=== PATIENT | female | born 1980 | race American Indian/Alaskan Native ===

== ENCOUNTER 2018-11-04 20:13 | Emergency (ER) | payer MEDICAID ==
[2018-11-04] MEDS ORDERED: ASPIRIN PO ONE (20:23)
--- NOTE | 2018-11-04 20:25 | Event Note ---
ED Screening Note Date of service: 11/04/18 Time: 20:22 ED Screening Note: This is a 38 y.o. F. that presents to the ER with chest pain radiating to LUE. PMH of anxiety, TIA 2013 Patient took 2 briana ASA prior to arrival. This initial assessment/diagnostic orders/clinical plan/treatment(s) is/are subject to change based on patients health status, clinical progression and re- assessment by fellow clinical providers in the ED. Further treatment and workup at subsequent clinical providers discretion. Patient/guardian urged not to elope from the ED as their condition may be serious if not clinically assessed and managed. Initial orders include: Labs, ekg, and cxr
[2018-11-04 20:45] LABS: Basophils # (Auto) 0.1 K/mm3 (0.0-0.1); Basophils % (Auto) 0.6 % (0.0-1.8); Eosinophils # (Auto) 0.3 K/mm3 (0.0-0.4); Eosinophils % (Auto) 2.6 % (0.0-4.3); Hematocrit 37.1 % (30.3-42.9); Hemoglobin 12.6 gm/dl (10.1-14.3); Lymphocytes % (Auto) 37.9 % (13.4-35.0); Mean Corpuscular HGB Conc 34 % (30-34); Mean Corpuscular Volume 88 fl (79-97); Monocytes # (Auto) 0.7 K/mm3 (0.0-0.8); Monocytes % (Auto) 6.3 % (0.0-7.3); Platelet Count 283 K/mm3 (140-440); Red Blood Count 4.21 M/mm3 (3.65-5.03); Red Cell Distribution Width 13.4 % (13.2-15.2)
--- NOTE | 2018-11-04 20:54 | Emergency Department Report ---
ED Chest Pain HPI - General Chief Complaint: Chest Pain Stated Complaint: CHEST PAIN/NECK/ARM PAIN Time Seen by Provider: 11/04/18 20:21 Source: patient Mode of arrival: Ambulatory Limitations: No Limitations - History of Present Illness Initial Comments: Patient is 38 years old female with history of hypertension and diabetes controlled by diet. Patient presented to the ER complaining of generalized chest pain, sharp in nature with no radiation. Patient stated that pain started all of a sudden while she was driving. Patient also stated that she has some shortness of breath. Patient stated that she had history of panic attack. MD Complaint: chest pain -: Sudden, This afternoon Pain Location: substernal, left chest, right chest Severity: moderate Severity scale (0 -10): 6 Quality: sharp - Related Data Allergies Allergy/AdvReac Type Severity Reaction Status Date / Time No Known Allergies Allergy Unverified 11/04/18 20:14 Heart Score - HEART Score History: Moderately suspicious EKG: Non-specific Age: < 45 Risk factors: 1-2 risk factors Troponin: < normal limit HEART Score: 3 - Critical Actions Critical Actions: 0-3 pts:0.9-1.7%risk of adverse cardiac event.Candidate for discharge ED Review of Systems ROS: Stated complaint: CHEST PAIN/NECK/ARM PAIN Other details as noted in HPI Comment: All other systems reviewed and negative Constitutional: denies: chills, fever Respiratory: shortness of breath. denies: cough, orthopnea, SOB with exertion, SOB at rest Cardiovascular: chest pain. denies: palpitations Gastrointestinal: denies: abdominal pain, nausea Neurological: denies: headache, weakness, numbness, paresthesias, confusion, abnormal gait ED Past Medical Hx - Past Medical History Previous Medical History?: Yes Hx Hypertension: Yes Hx Headaches / Migraines: Yes Hx Psychiatric Treatment: Yes (Panic Attack) Additional medical history: TIA - Surgical History Past Surgical History?: Yes Additional Surgical History: Tubal Ligation - Social History Smoking Status: Never Smoker Substance Use Type: None ED Physical Exam - General Limitations: No Limitations General appearance: alert, in no apparent distress, anxious - Head Head exam: Present: atraumatic, normocephalic, normal inspection - Eye Eye exam: Present: normal appearance, PERRL - ENT ENT exam: Present: normal exam, normal orophraynx, mucous membranes moist - Neck Neck exam: Present: normal inspection, full ROM. Absent: tenderness, meningismus, lymphadenopathy, thyromegaly - Respiratory Respiratory exam: Present: normal lung sounds bilaterally - Cardiovascular Cardiovascular Exam: Present: regular rate, normal rhythm, normal heart sounds - GI/Abdominal GI/Abdominal exam: Present: soft, normal bowel sounds. Absent: distended, tenderness, guarding, rebound, rigid, organomegaly, mass, bruit, pulsatile mass, hernia - Extremities Exam Extremities exam: Present: normal inspection, full ROM, normal capillary refill. Absent: tenderness, pedal edema, calf tenderness - Back Exam Back exam: Present: normal inspection, full ROM. Absent: CVA tenderness (R), CVA tenderness (L), muscle spasm, paraspinal tenderness, vertebral tenderness - Neurological Exam Neurological exam: Present: alert, oriented X3, CN II-XII intact, normal gait, reflexes normal - Psychiatric Psychiatric exam: Present: normal mood - Skin Skin exam: Present: warm, intact, normal color ED Course Vital Signs 11/04/18 11/04/18 11/04/18 20:24 21:01 21:12 Temperature 97.3 F L Pulse Rate 63 62 Respiratory 18 16 16 Rate Blood Pressure 121/77 Blood Pressure 128/77 [Left] O2 Sat by Pulse 98 100 100 Oximetry 11/04/18 22:55 Temperature Pulse Rate 72 Respiratory 17 Rate Blood Pressure Blood Pressure 132/76 [Left] O2 Sat by Pulse 100 Oximetry ED Medical Decision Making - Lab Data Result diagrams: 11/04/18 20:27 11/04/18 20:27 - EKG Data -: EKG Interpreted by Co EKG shows normal: sinus rhythm Rate: normal - EKG Data Interpretation: no acute changes - Radiology Data Radiology results: report reviewed CTA chest is negative for acute finding. - Medical Decision Making Patient is 38 years old female with history of hypertension and diabetes controlled by diet. Patient presented to the ER complaining of generalized chest pain, sharp in nature with no radiation. Patient stated that pain started all of a sudden while she was driving. Patient also stated that she has some shortness of breath. Patient stated that she had history of panic attack. Patient stated that she is feeling much better. Symptoms completely resolved. Labs reviewed and is unremarkable except for slightly increased d-dimer irritation had a CTA chest and he came back negative for PE. Patient advised to follow-up with her primary care physician in the next 2-3 days and to return to the ER if symptoms are not improved. Critical care attestation.: If time is entered above; I have spent that time in minutes in the direct care of this critically ill patient, excluding procedure time. ED Disposition Clinical Impression: Chest pain Disposition: DC-01 TO HOME OR SELFCARE Is pt being admited?: No Condition: Stable Instructions: Chest Pain (ED) Referrals: LEONIE URBAN MD [Primary Care Provider] - 3-5 Days
[2018-11-04 21:11] LABS: BUN/Creatinine Ratio 10; Blood Urea Nitrogen 10 mg/dL (7-17); Calcium 9.6 mg/dL (8.4-10.2); Hemolysis Index 5
[2018-11-04 21:34] LABS: Alanine Aminotransferase 18 units/L (7-56); Albumin 4.1 g/dL (3.9-5)
[2018-11-04 21:45] LABS: Bilirubin,Direct < 0.2 mg/dL (0-0.2)
--- NOTE | 2018-11-04 23:23 | Cat Scan Report ---
CT angio chest INDICATION / CLINICAL INFORMATION: Elevated d dimer. Having chest pain. . TECHNIQUE: Axial CT images were obtained after injection of IV contrast using CTA protocol. 3 plane MIP / 3D rec onstructions were produced. All CT scans at this location are performed using CT dose reduction for A BREANN by means of automated exposure control. 100 cc of Omnipaque 350 was administered intravenously COMPARISON: None available. FINDINGS: Following the administration of intravenous contrast, no filling defects are seen in the main pulmona ry arteries or their branches. No significant parenchymal abnormality is seen in the lungs. No enlarg ed mediastinal or hilar lymph nodes are identified. A cyst is present in the left lobe of the liver. IMPRESSION: 1. No evidence of pulmonary embolus. 2. Incidentally seen is a small cyst in the left lobe of the liver Signer Name: Venkatesh Bowles MD FACR Signed: 11/04/2018 11:18 PM Workstation Name: [id number]
[2018-11-05 02:21] VITALS: BP 124/76
== END 2018-11-05 | disposition home or self-care (01) ==
LOC: ED 20:13
DX: R07.89 Other chest pain (principal); R06.02 Shortness of breath; I10 Essential (primary) hypertension; G43.909 Migraine, unspecified, not intractable, without status migrainosus; F41.0 Panic disorder [episodic paroxysmal anxiety]; Z98.51 Tubal ligation status; Z86.73 Personal history of transient ischemic attack (TIA), and cerebral infarction without residual deficits
CPT/HCPCS: 36415; 71275; 80048; 80076; 84484; 84703; 85025; 85379; 93005; 93010; 99284; Q9967